=== PATIENT | male | born 1995 | race Caucasian/White ===

== ENCOUNTER 2017-10-24 00:05 | Emergency (ER) | payer OTHER, MEDICARE ==
[~2017-10-24] VITALS: Ht 182.9 cm; Wt 128.0 kg
[2017-10-24 00:06] VITALS: BP 138/81; PULSE 98; RESP 16; TEMP 99.3; O2SAT 98
[2017-10-24] MEDS ORDERED: DICL75TA PO (00:18)
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
[2017-10-24] MEDS ORDERED: NAPROXEN 500 MG TAB PO ONE (00:30)
== END 2017-10-24 01:13 | disposition home or self-care (01) ==
LOC: NEPD 00:05
DX: S80.02XA Contusion of left knee, initial encounter (principal); Z87.09 Personal history of other diseases of the respiratory system; Y04.2XXA Assault by strike against or bumped into by another person, initial encounter; Y93.F9 Activity, other caregiving; Y92.239 Unspecified place in hospital as the place of occurrence of the external cause; Y99.0 Civilian activity done for income or pay
CPT/HCPCS: 99283